=== PATIENT | male | born 1970 | race Caucasian/White ===

== ENCOUNTER 2022-10-27 19:43 | Emergency (ER) | payer OTHER, BC, SELFPAY ==
[2022-10-27 19:48] VITALS: BP 134/71; PULSE 68; RESP 18; TEMP 36.6; O2SAT 98; BMI 27.5
--- NOTE | 2022-10-27 19:53 | XR_ITS ---
The [address] [address] Patient Name: NORA SKAGGS MRN: [id number] date: 1970 Sex: M Assigned Patient Location: ED.MAIN Current Patient Location: ED.MAIN Accession/Order Number: [id number] Exam Date: 10/27/2022 20:00 Report Date: 10/27/2022 20:35 At the request of: ASHLEY LEE Procedure: XR shoulder RT min 2V EXAM: XR shoulder RT min 2V HISTORY: Right shoulder pain COMPARISON: None. TECHNIQUE: 3 views of the right shoulder are performed. FINDINGS: There is no acute fracture or dislocation. There is joint space narrowing at the acromioclavicular joint. Unremarkable soft tissues. The visualized right lung is clear. XR/XR shoulder RT min 2V IMPRESSION: Degenerative changes at the acromioclavicular joint. No acute bony abnormality. Electronically authenticated by: BART STEIN Date: 10/27/2022 20:35
--- NOTE | 2022-10-27 19:56 | PC.NURSE ---
patient states while lifting something at his job, felt a pop to left shoulder. states the pain is less at this time but increases with movement. patient is able to move shoulder but has pain
--- NOTE | 2022-10-27 19:58 | ED_ITS ---
HPI - Extremity Injury (Upper) General Chief Complaint: Extremity Injury, Upper Stated Complaint: SHOULDER INJURY Time Seen by Provider: 10/27/22 19:51 Source: patient Mode of arrival: walk-in Limitations: no limitations History of Present Illness HPI narrative: Patient is a 52-year-old male who presents to the emergency department for the evaluation of right shoulder pain after an injury at work. He states appro ximately two hours ago he was lifting when he felt a pop in the right shoulder joint. He complains of pain from the right side of the neck, right trapezius area into the right glenohumeral joint. He states occasionally based on the positioning of his arm, he will noticed pain going into his right arm but has not had any numbness or tingling. 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 He denies any falls or direct injury to the shoulder. Related Data Previous Rx's Medication Instructions Recorded methocarbamol 750 mg tablet 750 mg PO TID PRN pain #20 tabs 10/27/22 methylprednisolone 4 mg tablets in See Rx Instructions .Route 10/27/22 a dose pack (Medrol (Luis Enrique)) .COMPLEX #21 ea Allergies Allergy/AdvReac Type Severity Reaction Status Date / Time No Known Drug Allergies Allergy Verified 10/27/22 19:53 Review of Systems ROS Constitutional Denies: fever or chills Ears, nose, mouth, and throat Denies: neck pain Cardiovascular Denies: chest pain Respiratory Denies: shortness of breath or cough Gastrointestinal Denies: nausea or vomiting Musculoskeletal Reports: extremity pain; Denies: back pain or neck pain Integumentary/Breast Denies: rash Neurological Denies: headache Exam Narrative Exam Narrative: Gen.: Awake, alert, in no distress Head: Normocephalic, atraumatic ENT: Moist mucous membranes Neck: No bony point tenderness of the C-spine, T-spine Extremities: Patient is able to move the right arm at the shoulder, normal abduction. Pain with movement. 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 Normal flexion and extension of the right elbow. No obvious deformity or sulcus sign Psych: Normal mood and affect Neuro: No focal neuro deficit Skin: Warm, dry, intact Constitutional Vital Signs, click to edit/add: Last Vital Signs Temp 97.8 F 10/27/22 19:48 Pulse 68 10/27/22 19:48 Resp 18 10/27/22 19:48 BP 134/71 10/27/22 19:48 Pulse Ox 98 10/27/22 19:48 O2 Del Method Room Air 10/27/22 19:48 Course Vital Signs Vital signs: Vital Signs Temperature 97.8 F 10/27/22 19:48 Pulse Rate 68 10/27/22 19:48 Respiratory Rate 18 10/27/22 19:48 Blood Pressure 134/71 10/27/22 19:48 Pulse Oximetry 98 10/27/22 19:48 Oxygen Delivery Method Room Air 10/27/22 19:48 Temperature 97.8 F 10/27/22 19:48 Pulse Rate 68 10/27/22 19:48 Respiratory Rate 18 10/27/22 19:48 Blood Pressure 134/71 10/27/22 19:48 Pulse Oximetry 98 10/27/22 19:48 Oxygen Delivery Method Room Air 10/27/22 19:48 MDM - Extremity Injury (Upper) MDM Narrative Medical decision making narrative: Patient with a benign exam, no evidence of focal deficit. X-rays with no evidence of acute bony abnormality. Patient placed in a right shoulder sling as needed for comfort. He was instructed to use the sling as needed over the next 3-5 days. Rest, ice, gentle stretching. Follow-up with occupational health. Muscle relaxants and Medrol Dosepak given for home. Return to the Emergency Room if symptoms change or worsen. Medical Records Attestation: I reviewed the patient's medical records. Imaging Data XR shoulder: Attestation: I personally reviewed and interpreted this imaging study as caitlyn collins: My impression: NAD Discharge Plan Discharge Chief Complaint: Extremity Injury, Upper Clinical Impression: Shoulder sprain Patient Disposition: Home, Self-Care Time of Disposition Decision: 20:16 Condition: Good Prescriptions / Home Meds: New methocarbamol 750 mg tablet 750 mg PO TID PRN (Reason: pain) Qty: 20 0RF methylprednisolone [Medrol (Luis Enrique)] 4 mg tablets,dose pack See Rx Instructions .ROUTE .COMPLEX Qty: 21 0RF Rx Instructions: Taper as directed Instructions: Shoulder Sprain (ED) Additional Instructions: Follow up with occupational health in 5-7 days. Use the sling for comfort, as needed, for 3-5 days Stand Alone Forms: Portal Instructions Referrals: [facility] [Outside] - 1 week
[2022-10-27] MEDS: KETOROLAC TROMETHAMINE 30 MG/ML VIAL IM (20:35)
== END 2022-10-27 20:50 | disposition home or self-care (01) ==
PROVIDERS: Emergency Provider Emergency Medicine
DX: S43.401A Unspecified sprain of right shoulder joint, initial encounter (principal); X50.9XXA Other and unspecified overexertion or strenuous movements or postures, initial encounter
CPT/HCPCS: 73030; 96372; 99284

== ENCOUNTER 2023-01-11 19:33 | Emergency (ER) | payer OTHER, SELFPAY ==
[2023-01-11 19:38] VITALS: BP 155/71; PULSE 64; RESP 15; TEMP 36.3; O2SAT 100; BMI 27.5
--- NOTE | 2023-01-11 19:41 | XR_ITS ---
The [address] [address] Patient Name: NORA SKAGGS MRN: [id number] date: 1970 Sex: M Assigned Patient Location: ED.MAIN Current Patient Location: ED.MAIN Accession/Order Number: [id number] Exam Date: 01/11/2023 19:50 Report Date: 01/11/2023 20:18 At the request of: ASHLEY LEE Procedure: XR shoulder RT min 2V EXAM: XR shoulder RT min 2V HISTORY: Shoulder pain COMPARISON: X-rays 10/27/2022 TECHNIQUE: 3 views FINDINGS: No osseous lesion, fracture, dislocation or subluxation. Moderate degenerative changes of the acromioclavicular joint. Glenohumeral joint appears unremarkable.. No visualized effusion. No visualized soft tissue edema. XR/XR shoulder RT min 2V IMPRESSION: Moderate acromioclavicular joint degenerative changes. Stable with the prior study Electronically authenticated by: NOVA SORIA Date: 01/11/2023 20:18
--- NOTE | 2023-01-11 19:45 | PC.NURSE ---
Pt reports pulling heavy object at work and felt pain in right shoulder, similar to previous injury to right shoulder years ago. Pt reports mild tingling in right hand after injury.
--- NOTE | 2023-01-11 19:56 | ED_ITS ---
HPI - Extremity Injury (Upper) General Chief Complaint: Extremity Injury, Upper Stated Complaint: RT SHOULDER PAIN/PREVIOUS [facility] Time Seen by Provider: 01/11/23 19:38 Source: patient Mode of arrival: walk-in Limitations: physical limitation Exam limitations: RUE limited ROM History of Present Illness HPI narrative: patient is a 52-year-old male who returns to the emergency department for ev aluation of continued pain in the right shoulder. He was seen in this emergency department previously and diagnosed with a right shoulder strain secondary to a work injury. He has followed up with occupational health. He states that he has had improvement of pain but today noticed after doing repetitive motions that are not typical for his job he had an increase in pain over the right glenohumeral joint associated with tingling to the right hand and pain radiation to the right scapula. He denies any direct mechanism of injury or trauma. No medications taken prior to arrival. He denies neck pain or back pain. He reports significant pain with movement at the right shoulder, he is right-hand dominant. Related Data Home Medications Medication Instructions Recorded Confirmed atorvastatin 80 mg tablet mg 01/11/23 lisinopril 30 mg tablet mg 01/11/23 Previous Rx's Medication Instructions Recorded methocarbamol 750 mg tablet 750 mg PO TID PRN pain #20 tabs 10/27/22 methylprednisolone 4 mg tablets in See Rx Instructions .Route 10/27/22 a dose pack (Medrol (Luis Enrique)) .COMPLEX #21 ea ketorolac 10 mg tablet 10 mg PO TID PRN pain #10 tabs 01/11/23 orphenadrine citrate 100 mg 100 mg PO BID PRN muscle pain #14 01/11/23 tablet,extended release tabs Allergies Allergy/AdvReac Type Severity Reaction Status Date / Time No Known Drug Allergies Allergy Verified 01/11/23 19:41 Review of Systems ROS Constitutional Denies: fever or chills Cardiovascular Denies: chest pain Respiratory Denies: shortness of breath or cough Gastrointestinal Denies: nausea or vomiting Musculoskeletal Reports: extremity pain, joint pain and limited range of motion; Denies: back pain or neck pain Integumentary/Breast Denies: rash Neurological Denies: headache Allergic/Immunologic Denies: hives Exam Narrative Exam Narrative: Gen.: Awake, alert, in no distress Head: Normocephalic, atraumatic ENT: Moist mucous membranes Respiratory: No respiratory distress Extremities: restricted movement at the right shoulder, pain with abduction at the right shoulder. 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 No bony tenderness of the right scapula with diffuse mild tenderness of the right glenohumeral joint. No obvious deformity or sulcus sign. 2+ right radial pulse Psych: Normal mood and affect Neuro: No focal neuro deficit Skin: Warm, dry, intact Constitutional Vital Signs, click to edit/add: Last Vital Signs Temp 97.4 F L 01/11/23 19:38 Pulse 64 01/11/23 19:38 Resp 15 01/11/23 19:38 BP 155/71 H 01/11/23 19:38 Pulse Ox 100 01/11/23 19:38 O2 Del Method Room Air 01/11/23 19:38 Course Vital Signs Vital signs: Vital Signs Temperature 97.4 F L 01/11/23 19:38 Pulse Rate 64 01/11/23 19:38 Respiratory Rate 15 01/11/23 19:38 Blood Pressure 155/71 H 01/11/23 19:38 Pulse Oximetry 100 01/11/23 19:38 Oxygen Delivery Method Room Air 01/11/23 19:38 Temperature 97.4 F L 01/11/23 19:38 Pulse Rate 64 01/11/23 19:38 Respiratory Rate 15 01/11/23 19:38 Blood Pressure 155/71 H 01/11/23 19:38 Pulse Oximetry 100 01/11/23 19:38 Oxygen Delivery Method Room Air 01/11/23 19:38 MDM - Extremity Injury (Upper) MDM Narrative Medical decision making narrative: repeat x-rays with no evidence of acute process, stable degenerative changes at the right acromioclavicular joint. Patient referred back to occupational health for further evaluation and treatment, exam is consistent with right shoulder strain versus tendinitis. He is neurovascularly intact at discharge. He is prescribed Norflex and NSAIDs. Return to the Emergency Room if symptoms change or worsen. Medical Records Attestation: I reviewed the patient's medical records. Imaging Data x-ray right shoulder: Attestation: I have reviewed the pertinent imaging results. Radiologist's impression: Procedure: XR shoulder RT min 2V EXAM: XR shoulder RT min 2V HISTORY: Shoulder pain COMPARISON: X-rays 10/27/2022 TECHNIQUE: 3 views FINDINGS: No osseous lesion, fracture, dislocation or subluxation. Moderate degenerative changes of the acromioclavicular joint. Glenohumeral joint appears unremarkable.. No visualized effusion. No visualized soft tissue edema. IMPRESSION: Moderate acromioclavicular joint degenerative changes. Stable with the prior study Electronically authenticated by: NOVA SORIA Date: 01/11/2023 20:18 Discharge Plan Discharge Chief Complaint: Extremity Injury, Upper Clinical Impression: Acute pain of right shoulder Patient Disposition: Home, Self-Care Time of Disposition Decision: 20:30 Condition: Good Prescriptions / Home Meds: New ketorolac 10 mg tablet 10 mg PO TID PRN (Reason: pain) Qty: 10 0RF orphenadrine citrate 100 mg tablet extended release 100 mg PO BID PRN (Reason: muscle pain) Qty: 14 0RF No Action methocarbamol 750 mg tablet 750 mg PO TID PRN (Reason: pain) Qty: 20 0RF Hold Instructions: script methylprednisolone [Medrol (Luis Enrique)] 4 mg tablets,dose pack See Rx Instructions .ROUTE .COMPLEX Qty: 21 0RF Rx Instructions: Taper as directed atorvastatin 80 mg tablet lisinopril 30 mg tablet Instructions: Shoulder Pain (ED) Stand Alone Forms: Portal Instructions Referrals: [facility] [Outside] - As soon as possible Discharge Date/Time: 01/11/23 21:13
[2023-01-11] MEDS: KETOROLAC TROMETHAMINE 10 MG TABLET PO (20:52)
[2023-01-11] MEDS: METHOCARBAMOL 500 MG TABLET 1000 MG PO (20:52)
== END 2023-01-11 21:13 | disposition home or self-care (01) ==
PROVIDERS: Emergency Provider Emergency Medicine
DX: M25.511 Pain in right shoulder (principal)
CPT/HCPCS: 73030; 99283